=== PATIENT | male | born 1980 | race African-American/Black ===

== ENCOUNTER 2019-05-06 17:20 | Emergency (ER) | payer OTHER ==
[~2019-05-06] VITALS: Ht 188 cm; Wt 112.0 kg
[2019-05-06] MEDS ORDERED: AMLO5TAB6 PO (17:35)
[2019-05-06] MEDS ORDERED: IBUPROFEN 800 MG TAB PO ONE (20:45)
--- NOTE | 2019-05-06 21:26 | REP ---
Left shoulder three views History: Pain There is no acute fracture or dislocation. The joint spaces are normal in appearance. Impression: There is no acute fracture or dislocation. Electronically Signed by Carlos Shannon MD 05/06/2019 09:18 P
[2019-05-06 22:14] VITALS: BP 133/88
== END 2019-05-06 22:15 | disposition home or self-care (01) ==
LOC: M ED 17:20
DX: S46.012A Strain of muscle(s) and tendon(s) of the rotator cuff of left shoulder, initial encounter (principal); X58.XXXA Exposure to other specified factors, initial encounter; Y92.89 Other specified places as the place of occurrence of the external cause; I10 Essential (primary) hypertension; Z79.899 Other long term (current) drug therapy